=== PATIENT | male | born 1990 | race Caucasian/White ===

== ENCOUNTER 2017-03-26 15:15 | Emergency (ER) | payer MEDICAID, OTHER ==
[~2017-03-26] VITALS: Ht 165.1 cm; Wt 80.0 kg
[2017-03-26 15:19] VITALS: Ht 165.1 cm; Wt 80.0 kg
[2017-03-26] MEDS ORDERED: IBUP-1542 PO (15:36)
[2017-03-26] MEDS ORDERED: AMOX1TAB10 PO (15:36)
--- NOTE | 2017-03-26 15:41 | ERD ---
ER Documentation Chief Complaint Date/Time DATE: 03/26/17 TIME: 15:37 Chief Complaint right pinky dog bite HPI Patient is a 26-year-old male who presents to the emergency department for concerns of a dog bite to his right pinky finger. Patient states that his friend's dog bit him on the right finger earlier today. Patient is unsure of the dog is vaccinated. Patient does not recall his last tetanus vaccination. Patient denies any fevers, chills, nausea, vomiting, muscle cramps, LOC. Patient has normal range of motion of all his digits. Patient is left-hand dominant. ROS All systems reviewed and are negative except as per history of present illness. Medications Home Meds Active Scripts Hydrocodone/Acetaminophen (Watson 5-325 Tablet) 1 Each Tablet, 1 TAB PO Q6H Y for PAIN, #7 TAB Prov:MEHRAN STEARNS PA-C 03/26/17 Amoxicillin/Potassium Clav (Amox-Clav 875-125 mg Tablet) 875-125 mg Tab, 1 TAB PO BID for 10 Days, #20 TAB Prov:MEHRAN STEARNS PA-C 03/26/17 Ibuprofen* (Motrin*) 600 Mg Tab, 600 MG PO Q6, #20 TAB Prov:MEHRAN STEARNS PA-C 03/26/17 PMhx/Soc Medical and Surgical Hx: pt denies Medical Hx, pt denies Surgical Hx History of Surgery: No Anesthesia Reaction: No Hx Neurological Disorder: No Hx Respiratory Disorders: No Hx Cardiac Disorders: No Hx Psychiatric Problems: No Hx Miscellaneous Medical Probl: No Hx Alcohol Use: Yes Hx Substance Use: Yes (Marijuana) Hx Tobacco Use: Yes Smoking Status: Current every day smoker FmHx Family History: No diabetes Physical Exam Vitals Vital Signs Date Time Temp Pulse Resp B/P Pulse Ox O2 Delivery O2 Flow Rate FiO2 03/26/17 15:19 98.1 77 18 140/89 99 Physical Exam GENERAL: Well-developed, well-nourished male. Appears in no acute distress. HEAD: Normocephalic, atraumatic. EYES: Pupils are equally reactive bilaterally. EOMs grossly intact. No conjunctival erythema. ENT: Moist mucous membranes. No uvula deviation. No kissing tonsils. NECK: Supple. No meningismus. Normal range of motion of the neck. LUNG: Clear to auscultation bilaterally. No rhonchi, wheezing, rales or coarse breath sounds. HEART: Regular rate and rhythm. No murmurs, rubs or gallops. EXTREMITIES: Equal pulses bilaterally. No peripheral clubbing, cyanosis or edema. No unilateral leg swelling. NEUROLOGIC: Alert and oriented. Moving all four extremities without any difficulty. Normal speech. Steady gait. SKIN: Normal color. 0.5 cm puncture wound noted to the patient's volar aspect of right pinky finger. No swelling, warmth or erythema noted. No active bleeding or discharge. Patient able to bend at PIP joint and DIP joint without any difficulty. Patient has normal range of motion of all digits. Results 24 hrs Current Medications Medications (Trade) Dose Ordered Sig/Timi Route PRN Reason Start Time Stop Time Status Last Admin Dose Admin Acetaminophen/ Hydrocodone Bitart (Watson (5/325)) 1 tab ONCE ONCE PO 03/26/17 16:00 03/26/17 16:01 DC 03/26/17 15:44 Diphtheria/ Tetanus/Acell Pertussis (Adacel) 0.5 ml ONCE ONCE IM* 03/26/17 16:00 03/26/17 16:01 DC 03/26/17 15:43 Procedures/MDM ED COURSE: The patient was stable throughout ED course. I kept the patient and/or family informed of laboratory and diagnostic imaging results throughout the ED course. MEDICATIONS GIVEN: Tdap, Watson Patient tolerated medication well with no adverse reactions. MEDICAL DECISION MAKING: Patient is a 26-year-old male who presents with concerns of a dog bite to his right pinky finger which occurred earlier today. Patient states that he was bit by his friend's dog. Patient is unsure of the dog's vaccination status.. Vital signs were reviewed. Patient is afebrile. Patient was not hypoxic. The patient did not recall his last tetanus vaccination, patient was given his Tdap today. Patient's wound was cleansed using normal saline and Betadine. At this time, the patient's presentation is most consistent with dog bite. Low suspicion for tendon injury, neurovascular injury, deep space infection, retained foreign body or rabies. PRESCRIPTION: Watson, Ibuprofen, Augmentin DISCHARGE: At this time, patient is stable for discharge and outpatient management. Patient was advised to return to the ED in 2 days for wound recheck. Patient advised to return sooner for any new or worsening symptoms including but not limited to redness, swelling, pain, active discharge or bleeding. I have instructed the patient to follow-up with his/her primary care physician in 1-2 days. I have discussed with the patient the possibility of needing to see a specialist for further workup and imaging studies if symptoms persist. I have instructed the patient to promptly return to the ER for any new or worsening symptoms including increased pain, fever, nausea, vomiting, weakness or LOC. The patient and/or family expressed understanding of and agreement with this plan. All questions were answered. Home care instructions were provided. Departure Diagnosis: Primary Impression: Dog bite Encounter type: initial encounter Qualified Code: W54.0XXA - Dog bite, initial encounter Condition: Stable Patient Instructions: Animal Bite, General Referrals: [facility] YOU HAVE RECEIVED A MEDICAL SCREENING EXAM AND THE RESULTS INDICATE THAT YOU DO NOT HAVE A CONDITION THAT REQUIRES URGENT TREATMENT IN THE EMERGENCY DEPARTMENT. FURTHER EVALUATION AND TREATMENT OF YOUR CONDITION CAN WAIT UNTIL YOU ARE SEEN IN YOUR DOCTORS OFFICE WITHIN THE NEXT 1-2 DAYS. IT IS YOUR RESPONSIBILITY TO MAKE AN APPOINTMENT FOR FOLOW-UP CARE. IF YOU HAVE A PRIMARY DOCTOR --you should call your primary doctor and schedule an appointment IF YOU DO NOT HAVE A PRIMARY DOCTOR YOU CAN CALL OUR PHYSICIAN REFERRAL HOTLINE AT IF YOU CAN NOT AFFORD TO SEE A PHYSICIAN YOU CAN CHOSE FROM THE FOLLOWING [facility] [address] [facility]. [facility] [address] [facility] [facility] [address] [facility] [address] [facility] [facility] [address] [facility]. [facility] [address] [facility]. [facility] YOU HAVE RECEIVED A MEDICAL SCREENING EXAM AND THE RESULTS INDICATE THAT YOU DO NOT HAVE A CONDITION THAT REQUIRES URGENT TREATMENT IN THE EMERGENCY DEPARTMENT. FURTHER EVALUATION AND TREATMENT OF YOUR CONDITION CAN WAIT UNTIL YOU ARE SEEN IN YOUR DOCTORS OFFICE WITHIN THE NEXT 1-2 DAYS. IT IS YOUR RESPONSIBILITY TO MAKE AN APPOINTMENT FOR FOLOW-UP CARE. IF YOU HAVE A PRIMARY DOCTOR --you should call your primary doctor and schedule and appointment IF YOU DO NOT HAVE A PRIMARY DOCTOR YOU CAN CALL OUR PHYSICIAN REFERRAL HOTLINE AT . IF YOU CAN NOT AFFORD TO SEE A PHYSICIAN YOU CAN CHOSE FROM THE FOLLOWING [facility] INSTITUTIONS: [facility] [address] [place] [address] [facility] [address] [place] [address] [facility] [address] [place] [address] Additional Instructions: Return to the ED 2 days for wound recheck. Return sooner for any worsening redness, swelling, fever, chills, or discharge. Call your primary care doctor TOMORROW for an appointment during the next 1-2 days.See the doctor sooner or return here if your condition worsens before your appointment time. MEHRAN STEARNS PA-C Mar 26, 2017 15:41
[2017-03-26] MEDS ORDERED: HYDR-906 PO (15:59)
[2017-03-26] MEDS ORDERED: DIPHTH/TET/ACEL PERTUSS (ADULT) 0.5 ML VIAL IM* ONE (16:00)
[2017-03-26] MEDS ORDERED: HYDROCODONE/APAP (5/325) TAB PO ONE (16:00)
== END 2017-03-26 16:04 | disposition home or self-care (01) ==
LOC: FTE 15:15
DX: S61.236A Puncture wound without foreign body of right little finger without damage to nail, initial encounter (principal); F17.210 Nicotine dependence, cigarettes, uncomplicated; W54.0XXA Bitten by dog, initial encounter; Y92.9 Unspecified place or not applicable; Z23 Encounter for immunization
CPT/HCPCS: 90715; Z7610; 90471